=== PATIENT | female | born 1990 | race Caucasian/White ===

== ENCOUNTER 2021-09-07 06:10 | Day surgery (SDC) | payer OTHER, SELFPAY ==
[2021-09-05 08:06] VITALS: BMI 29.2
[2021-09-07] VITALS (7 sets, daily range): BP systolic 104–116; BP diastolic 55–73; PULSE 68–103; RESP 10–20; TEMP 36.5–37; O2SAT 97–100; BMI 29.2
[2021-09-07] MEDS: ACETAMINOPHEN 325 MG TABLET 975 MG PO (07:03)
[2021-09-07] MEDS: LACTATED RINGERS 1,000 ML 42 ML IV (07:12)
--- NOTE | 2021-09-07 07:27 | SUR.OPER ---
Prone on spine table, head in foam head support, padded chest and pelvic supports, gel pad at knees, lower legs supported by pillows; nipples, genitalia and toes free of pressure, arms secured on foam padded arm boards at <90 degrees abduction. Tape over blanket at thigh secured to table.
--- NOTE | 2021-09-07 07:36 | PM.PREOP ---
Pre-operative Note COVID-19 COVID-19 status: Negative Result date/Date tested (Pos, Neg/Pending): 09/05/21 Interval Note History & Physical reviewed/Exam performed by Physician: Yes Changes to H&P: No
[2021-09-07] MEDS: CEFAZOLIN 2 GM/20 ML SYRINGE IV (08:08)
[2021-09-07] MEDS: BUPIVACAINE 0.25% (PF) 30 ML, EPINEPHrine 0.15 MG INJ (08:24)
[2021-09-07] MEDS: methylPREDNISolone acet DEPO 40 MG/ML VIAL INJ (08:25)
--- NOTE | 2021-09-07 08:48 | DI.RAD.S_ITS ---
PROCEDURE: XR LUMBAR SPINE 2-3V INDICATIONS: L5-S1 MICRODISCECTOMY TECHNIQUE: 2 views of the lumbar spine were acquired. COMPARISON: None. FINDINGS: 2 submitted C-arm images demonstrate a surgical instrument projected over the L5 vertebral body. IMPRESSION: Intraoperative C-arm image demonstrating a surgical instrument projected over the L5 level. Dictated by: Victor Manuel Aviles [facility] Interpreted: Donya Reaves MD on 09/07/2021 at 9:05 Transcribed by: SADE on 09/07/2021 at 9:06 Approved by: Donya Reaves M.D. on 09/07/2021 at 15:41
--- NOTE | 2021-09-07 08:53 | P.OP_ITS ---
Operative Date/Time/Diagnoses Date of procedure: 09/07/21 Time of procedure: 07:45 Pre-op diagnosis: 1. L5-S1 disc herniation 2. L5-S1 radiculopathy Post-op diagnosis: same Procedure & Clinicians Procedure: 1. L5-S1 left microdiscectomy 2. Utilization of microsurgical technique and operating microscope Same procedure as scheduled: Yes Indications: Patient has been having chronic back pain and worsening lumbar radiculopathy. Patient failed multiple conservative management with worsening pain weakness and numbness in her lower extremity. Patient has been having difficulty performing activity of daily living. After discussing risks benefits of treatment options, patient elected proceed with surgery. Surgeon: Dinora Castellano Hot Plate Press Operator: Sharon Bueno Click Yes if Unassisted: No Anesthesia Type: General Operative Notes Closure Type: primary Specimen(s): none sent Estimated Blood Loss (mL): 2 Blood products transfused: none Procedure in detail: Patient was seen in the preoperative area. Risks and benefits of the surgery was discussed with the patient. Informed consent was obtained from the patient and placed in the chart. Surgical site was marked. Patient was taken to the operative room. General anesthesia was administered. Prophylactic antibiotic was given to the patient less than 30 min before the incision was made. Patient was placed into a prone position on the Bridger table. Patient's back was then prepped and draped in the sterile fashion. Time-out was performed at this time. Using AP and lateral C-arm imaging the interval between L5-S1 was identified and marked on patient's back. A 1 inch incision 1 in from midline was made on the left side. The fascia was incised in line with skin incision. Globus MARS retractors was placed inside the incision and docked onto the L5 lamina. Using microsurgical technique and operating microscope, a L5 laminotomy was performed using a Kerrison rongeur. Liagamentum flavum was resected at the site of the laminotomy. The disc space at L5-S1 was identified. Microdiscectomy was performed by incising the annulus with #11 blade. Microcurettes and pituitary was used to removed herniated disc fragments of disc from the epidural space. After the microdiskectomy was completed, the area medial lateral superior and inferior to the area of the microdiskectomy was inspected and explored using a micro curette. No other impinging structure was identified. The wound was then irrigated with sterile normal saline. 40 mg Depo-Medrol was placed into the epidural space. The deep fascia was closed with 1-0 Vicryl. The subcutaneous tissue was closed with 2-0 Vicryl. The skin was closed with 4-0 Monocryl. Patient tolerated the procedure well. There were no complications. Patient was transferred recovery room in stable condition. Complications: none Post-operative Condition: stable Disposition: PACU Plan for aftercare: Discharge to home
[2021-09-07] MEDS: OXYCODONE IR 5 MG TABLET PO (09:46)
[2021-09-07] MEDS: MEPERIDINE 50 MG/ML INJ 12.5 MG IV (09:47)
== END 2021-09-07 10:34 | disposition home or self-care (01) ==
PROVIDERS: Referring Provider Orthopaedic Surgery Orthopaedic Surgery of the Spine; Visit Provider Orthopaedic Surgery Orthopaedic Surgery of the Spine
PROC: (CPT 63030; principal; 2021-09-07 07:45)
DX: M51.16 Intervertebral disc disorders with radiculopathy, lumbar region (principal); Z86.16 Personal history of COVID-19; I34.0 Nonrheumatic mitral (valve) insufficiency
CPT/HCPCS: 63030; 72100; 76000; 81025; 82962; J0171; J0690; J1030; J1885; J2175; J2250; J2704; J3010